=== PATIENT | male | born 1985 | race American Indian/Alaskan Native ===

== ENCOUNTER 2023-02-04 10:07 | Emergency (ER) | payer OTHER | END 2023-02-04 17:37 | disposition home or self-care (01) | LOC: ED 10:07 | DX: F12.10 Cannabis abuse, uncomplicated (principal); F15.10 Other stimulant abuse, uncomplicated ==

== ENCOUNTER 2023-04-20 02:00 | Emergency (ER) | payer OTHER ==
[~2023-04-20] VITALS: Ht 180.3 cm; Wt 104.3 kg
[2023-04-20 02:12] LABS: BASOPHILS 0.5 % (0-2); EOSINOPHILS 2.8 % (0-6); HEMATOCRIT 41.8 % (35.0-50.0); HEMOGLOBIN 14.2 g/dL (12.0-18.0); LYMPHOCYTES 18.9 % (24-44); MCH 29.9 (27-36); MCHC 33.9 g/dl (30-36); MCV 88.2 fl (81-99); MONOCYTES 8.4 % (0-12); NEUTROPHILS 69.4 % (39-80); PLATELET COUNT 348 K/uL (140-440); RBC 4.74 M/ul (4.3-5.7); RDW 12.9 (10.5-15.0)
[2023-04-20 02:27] LABS: ALBUMIN 3.7 g/dL (3.4-5.0); ANION GAP 9.1 (7-21); BILIRUBIN, TOTAL 0.4 ng/dL (0.2-1.0); BUN/CREATININE RATIO 12.76 (6.0-28.6); CALCIUM 8.4 mg/dL (8.5-10.1); CREATININE, SERUM 0.94 mg/dL (0.70-1.30); MAGNESIUM 1.9 mg/dL (1.8-2.4); POTASSIUM 4.1 mmol/L (3.5-5.1); PROTEIN, TOTAL 7.4 g/dL (6.4-8.2)
[2023-04-20] MEDS ORDERED: CLEOCIN HCL300 MG PO (04:04)
[2023-04-20 08:15] VITALS: BP 120/66
== END 2023-04-20 08:15 | disposition home or self-care (01) ==
LOC: ED 02:00
PROVIDERS: Family Medicine
DX: T40.411A Poisoning by fentanyl or fentanyl analogs, accidental (unintentional), initial encounter (principal); R40.4 Transient alteration of awareness; L03.111 Cellulitis of right axilla
CPT/HCPCS: 36415; 71046; 80053; 80307; 83735; 85025; 96374; 96375; 99284-25; J2405; J3490; J7030

== ENCOUNTER 2024-04-15 16:52 | Emergency (ER) | payer OTHER ==
[~2024-04-15] VITALS: Ht 180.3 cm; Wt 100.0 kg
[~2024-04-15 16:52] MED LIST: CLEOCIN HCL300 MG PO
[2024-04-15] MEDS ORDERED: NALOXONE 4 MG NASAL SPRAY #2 HOME.PACK NAS ONE (20:00)
[2024-04-15 21:08] VITALS: BP 111/81
== END 2024-04-15 21:08 | disposition home or self-care (01) ==
LOC: ED 16:52
DX: T40.411A Poisoning by fentanyl or fentanyl analogs, accidental (unintentional), initial encounter (principal); R40.4 Transient alteration of awareness; Z59.00 Homelessness unspecified
CPT/HCPCS: 99284; J3490

== ENCOUNTER 2024-04-20 15:12 | Emergency (ER) | payer OTHER ==
[~2024-04-20] VITALS: Ht 180.3 cm; Wt 89.0 kg
--- OUTSIDE RECORDS SUMMARY | 2024-04-20 15:18 | XMS ---
PreManage Notification: KATLYN ELIAS Security [employer] Events No recent Security Events currently on file CRITERIA MET - [facility] - 2 Visits in 30 Days CARE PROVIDERS There are no care providers on record at this time. Yadira has no Care Guidelines for this patient. Sand[facility] V[facility] (12 MO.) [facility] T[facility] 2 NOTE: Visits indicate total known visits. ED/C VISIT TRACKING (12 MO.) 04/20/2024 15:12 [facility] [place] [place] [facility] COMPLAINT: - OVERDOSE 04/15/2024 16:52 [facility] [place] TYPE: Emergency COMPLAINT: - POSSIBLE OD DIAGNOSES: - Homelessness unspecified - Poisoning by fentanyl or fentanyl analogs, accidental (unintentional), initial encounter - Poisoning by unspecified drugs, medicaments and biological substances, accidental (unintentional), initial encounter - Transient alteration of awareness 04/20/2023 02:01 [facility] [place] TYPE: Emergency COMPLAINT: - OD DIAGNOSES: - Cellulitis of right axilla - Poisoning by fentanyl or fentanyl analogs, accidental (unintentional), initial encounter - Transient alteration of awareness INPATIENT VISIT TRACKING (12 MO.) No inpatient visits to display in this time frame [email or web address]
[2024-04-20] MEDS ORDERED: NARCAN4 MG MISC (17:15)
[2024-04-20 17:28] VITALS: BP 143/91
== END 2024-04-20 17:29 | disposition home or self-care (01) ==
LOC: ED 15:12
DX: T40.411A Poisoning by fentanyl or fentanyl analogs, accidental (unintentional), initial encounter (principal); R40.2A Nontraumatic coma due to underlying condition; F17.200 Nicotine dependence, unspecified, uncomplicated
CPT/HCPCS: 99284

== ENCOUNTER 2024-05-29 03:10 | Emergency (ER) | payer OTHER ==
[~2024-05-29] VITALS: Ht 180.3 cm; Wt 110.0 kg
[~2024-05-29 03:10] MED LIST changes: +NARCAN4 MG MISC
[2024-05-29] MEDS ORDERED: TRIMETHOPRIM/SULFAMETHOXAZOLE 1 EA TAB PO ONE (03:30)
[2024-05-29 03:39] LABS: BASOPHILS 0.4 % (0-2); EOSINOPHILS 2.4 % (0-6); MCHC 35.2 g/dl (30-36); MCV 88.2 fl (81-99); MONOCYTES 7.6 % (0-12); NEUTROPHILS 74.6 % (39-80); PLATELET COUNT 389 K/uL (140-440); RBC 3.85 M/ul (4.3-5.7); RDW 13.4 (10.5-15.0)
[2024-05-29] MEDS ORDERED: BACTRIM DS TAB1 EACH PO (04:08)
[2024-05-29] MEDS ORDERED: TRIMETHOPRIM/SULFAMETHOXAZOLE 1 EA HOME.PACK PO ONE (04:15)
[2024-05-29 05:00] VITALS: BP 141/75
== END 2024-05-29 04:55 | disposition home or self-care (01) ==
LOC: ED 03:10
PROVIDERS: Family Medicine
DX: L03.114 Cellulitis of left upper limb (principal)
CPT/HCPCS: 36415; 83605; 85025; 86140; 99283; A9270